=== PATIENT | female | born 1965 | race Caucasian/White ===

== ENCOUNTER 2016-05-16 16:31 | Emergency (ER) | payer OTHER ==
[~2016-05-16 16:31] MED LIST: ACETAMINOPHEN PO; ADVAIR 2501 DISK W/D PO; ALBUTEROL MININEB NEB; ALBUTEROL17 GM INH; ANUSOL-HC25 MG/SUPP RC; ASPIRIN EC81 M1 PO; ASPIRIN PO; ASPIRIN81 M1 PO; ASPIRIN81 M2 PO; ASPIRIN81 MG PO; ATORVASTATIN CA10 MG PO; AZITHROMYCIN250 MG PO; BACTRIM DS TABL1 TA1 PO; BENTYL10 MG PO; BENTYL20 MG DOB; BENTYL20 MG PO; BUSPAR; BUSPAR PO; CARAFATE PO; CARAFATE1 G PO; CARAFATE1 GM PO; CARVEDILOL3.125 MG PO; CIPRO; CIPRO PO; COMBIVENT INH14.7 GM INH; COMBIVENT U/D3 M3 INH; DELTASONE20 MG; DICYCLOMINE HCL20 MG PO; DIFLUCAN PO; ENDOCET 5-3251 EACH PO; FENOFIBRATE160 MG PO; FENOFIBRATE40 MG PO; FENOFIBRATE54 MG PO; FLAGYL; FLAGYL PO; FLAGYL250 M1 PO; FLEXERIL PO; FLEXERIL10 MG PO; FLONASE 0.05% N16 G1; GABAPENTIN600 MG PO; GLIPIZIDE10 MG PO; GLIPIZIDE5 MG/BOTTL PO; GLUCOTROL PO; GLUCOTROL XL PO; GLUCOTROL10 MG PO; HYDROCODON-ACE1 EAC9 PO; IBUPROFEN; IBUPROFEN800 MG PO; IMDUR-ER30 M1 PO; IMDUR-ER30 MG PO; IMDUR-ER60 M1 PO; IMDUR-ER60 MG PO; ISORDIL40 MG PO; JANUMET 50-501 UDTAB PO; JANUMET XR 50-1 EACH PO; KLONOPIN; KLONOPIN PO; KLONOPIN0.5 MG PO; KLONOPIN1 MG PO; LEVAQUIN PO; LEVAQUIN750 MG PO; LEVSIN PO; LEVSIN0.125 M1 DOB; LIPITOR; LIPITOR PO; LIPITOR20 MG PO; LOMOTIL TABLET1 TAB PO; LOPRESSOR PO; LORTAB 10-5001 EACH PO; LORTAB 5/500 TA1 TA1 PO; LORTAB 5/500 TA1 TA2 PO; LORTAB 7.5-5001 TAB PO; LORTAB 7.51 TAB DOB; LOW DOSE ASPIRI81 M1 PO; MACROBID 100 M100 MG PO; MACROBID100 MG PO; MEDROL4 MG/DOSE- PO; METFORMIN HCL500 M1 PO; METOPROLOL TAR25 MG PO; METOPROLOL TART25 MG PO; MIRALAX17 G1 PO; MONTELUKAST SOD10 MG PO; NAPROSYN375 MG PO; NAPROSYN500 MG PO; NEXIUM PO; NICOTINE T1 PATCH .2 TOP; NITROQUICK0.4 MG SL; NORCO 10-325 TA1 TAB PO; NORCO 5/325 TAB1 TAB PO; NUCYNTA50 MG PO; OMEPRAZOLE20 M2 PO; OMEPRAZOLE40 MG PO; PANTOPRAZOLE SO40 MG PO; PENTASA250 MG PO; PHENERGAN DM1 ML PO; PHENERGAN PO; PHENERGAN PR; PHENERGAN25 M1 DOB; PHENERGAN25 M1 PO; PHENERGAN25 MG PO; PLAVIX PO; PRAVACHOL PO; PRAVACHOL20 MG PO; PRAVASTATIN SOD20 MG PO; PRAVASTATIN SOD40 MG PO; PREDNISONE PO; PRILOSEC PO; PRILOSEC20 MG DOB; PRILOSEC20 MG PO; PRILOSEC40 MG PO; PROCORT 1.85%-160 GM RC; PROCTOCREAM-HC30 GM PR; PROTONIX PO; PROZAC PO; PYRIDIUM PO; RANEXA500 MG PO; SERTRALINE HCL50 MG PO; SKELAXIN PO; SYMBICORT INH; TAMIFLU75 M1 PO; TRICOR PO; TYLENOL #3 PO; TYLENOL325 M1 PO; VIBRAMYCIN100 M1 PO; VICODIN 5/1 TAB 5/50 PO; VICODIN PO; ZOFRAN PO; ZOFRANODT PO; ZOLOFT PO; ZOLOFT50 MG PO; [UNRECOGNIZED DRUG - OTHER] PO; [UNRECOGNIZED DRUG - REMARK]
== END 2016-05-16 16:32 | disposition home or self-care (01) ==
LOC: CFTX 16:31
DX: K62.89 Other specified diseases of anus and rectum (principal); K64.9 Unspecified hemorrhoids; E11.9 Type 2 diabetes mellitus without complications; I10 Essential (primary) hypertension; J44.9 Chronic obstructive pulmonary disease, unspecified; F17.210 Nicotine dependence, cigarettes, uncomplicated; Z90.49 Acquired absence of other specified parts of digestive tract; Z88.8 Allergy status to other drugs, medicaments and biological substances; Z88.0 Allergy status to penicillin; Z79.899 Other long term (current) drug therapy
CPT/HCPCS: 99282

== ENCOUNTER 2016-07-10 17:25 | Emergency (ER) | payer OTHER ==
--- NOTE | ~2016-07-10 | EKG ---
PATIENT: NIRU BERRY UNIT #: [id number] Ventricular Rate: 86 BPM Atrial Rate: 86 BPM P-R Interval: 138 ms QRS Duration: 76 ms Q-T Interval: 364 ms QTC Calculation(Bezet): 435 ms P [place]: 48 degrees Calculated R [place]: 42 degrees Calculated T [place]: 28 degrees Diagnosis Line: Normal sinus rhythm Diagnosis Line: Normal ECG Diagnosis Line: When compared with ECG of 17-APR-2016 12:51, Diagnosis Line: No significant change was found Diagnosis Line: Confirmed by CROW CURRIE MD ([id number]) on 07/13/2016 Diagnosis Line: 9:41:25 AM INTERPRETING MD: ROSEY SANCHEZ
--- NOTE | ~2016-07-10 | CR181 ---
[facility] A Service of [facility] & [facility] RADIOLOGY TEXT RESULTS PATIENT: NIRU BERRY LOCATION: [facility] : 69 UNIT #: [id number] AGE: [address]: Hayden Taylor MD SEX: F ORDER DR: [id number] [facility] [address] [place], [place] [address] [id number] E MR#: [id number] Acc #: [id number] NAME: NIRU BERRY : 1965 SEX: F STUDY DATE/TIME: 07/10/2016 18:41 UNIT: [facility] ROOM: STUDY DESCRIPTION: CR Lumbar Spine 2 or 3 Views Attending Physician: Hayden Taylor M.D. Ordering Physician: Hayden Taylor M.D. Primary Care Physician: Man Kay M.D. MEDICAL IMAGING REPORT This report is preliminary unless electronic signature is present EXAM Lumbar spine 3 views 07/10/2016 HISTORY Low back pain beginning yesterday with no known injury. FINDINGS 3 views of the lumbar spine demonstrate no fracture. There is a 5 mm anterolisthesis of L4 on L5. The remainder of the posterior vertebral body line is intact. There is degenerative change with mild disc space narrowing at L4-5 and L5-S1. Degenerative changes seen involving all of the articular facets. There is mild atherosclerotic calcification of the abdominal aorta. IMPRESSION Degenerative change in the lumbar spine. No acute abnormality. Dictated by... Brock Javier M.D. THIS IS AN ELECTRONICALLY VERIFIED REPORT Brock Javier M.D. at 07/11/2016 10:46 AM NHEA/elsa TD: 07/11/2016 08:22 JOB #: [id number] MEDICAL IMAGING REPORT Page 1 of 1 COPY
--- NOTE | ~2016-07-10 | CR72 ---
[facility] A Service of [facility] & [facility] RADIOLOGY TEXT RESULTS PATIENT: NIRU BERRY LOCATION: [facility] : 69 UNIT #: [id number] AGE: [address]: Hayden Taylor MD SEX: F ORDER DR: [id number] [facility] [address] [place], [place] [address] [id number] E MR#: [id number] Acc #: [id number] NAME: NIRU BERRY : 1965 SEX: F STUDY DATE/TIME: 07/10/2016 18:40 UNIT: [facility] ROOM: STUDY DESCRIPTION: CR Chest Single View Portable Attending Physician: Hayden Taylor M.D. Ordering Physician: Hayden Taylor M.D. Primary Care Physician: Man Kay M.D. MEDICAL IMAGING REPORT This report is preliminary unless electronic signature is present EXAM Portable chest 07/10/2016 HISTORY Cough beginning yesterday, diabetes. Smoking history for over 30 years. FINDINGS A single AP portable view of the chest shows both lungs to be clear. The heart is normal in size. The mediastinal contour is normal. No significant bone abnormalities are seen. IMPRESSION Normal portable chest. Dictated by... Brock Javier M.D. THIS IS AN ELECTRONICALLY VERIFIED REPORT Brock Javier M.D. at 07/11/2016 10:46 AM NEHA/elsa TD: 07/11/2016 08:11 JOB #: [id number] MEDICAL IMAGING REPORT Page 1 of 1 COPY
--- NOTE | ~2016-07-10 | CR58 ---
[facility] A Service of [facility] & [facility] RADIOLOGY TEXT RESULTS PATIENT: NIRU BERRY LOCATION: [facility] : 69 UNIT #: [id number] AGE: [address]: Hayden Taylor MD SEX: F ORDER DR: [id number] [facility] [address] [place], [place] [address] [id number] E MR#: [id number] Acc #: [id number] NAME: NIRU BERRY : 1965 SEX: F STUDY DATE/TIME: 07/10/2016 18:40 UNIT: [facility] ROOM: STUDY DESCRIPTION: CR Cervical Spine 2 or 3 Views Attending Physician: Hayden Taylor M.D. Ordering Physician: Hayden Taylor M.D. Primary Care Physician: Man Kay M.D. MEDICAL IMAGING REPORT This report is preliminary unless electronic signature is present EXAM Cervical spine 5 views 07/10/2016 HISTORY Neck pain, cervical radiculopathy beginning yesterday. No known trauma. FINDINGS 5 views of the cervical spine show satisfactory preservation of the cervical lordosis. The cervical soft tissues are normal. All anterior and posterior elements in the cervical area are anatomically normal without identifiable fracture, dislocation, malignant lytic or sclerotic change, or arthritis. There is no congenital defect apparent. IMPRESSION Normal cervical spine. Dictated by... Brock Javier M.D. THIS IS AN ELECTRONICALLY VERIFIED REPORT Brock Javier M.D. at 07/11/2016 10:46 AM NEHA/lenny TD: 07/11/2016 08:13 JOB #: [id number] MEDICAL IMAGING REPORT Page 1 of 1 COPY
[2016-07-10 16:20] LABS: BASOPHIL# 0.1 X10e3 (0-0.3); BASOPHIL% 0.7 % (0-2.5); EOSINOPHIL# 0.1 X10e3 (0-0.7); HEMATOCRIT 38.6 % (35.0-45.0); HEMOGLOBIN 12.1 gm/dL (12.0-16.0); LYMPHOCYTE# 2.3 X10e3 (1.0-3.5); LYMPHOCYTE% 20.1 % (17.0-45.0); MEAN CELL VOLUME 79.5 FL (83-96); MEAN CORPUSCULAR HGB CONC 31.4 g/dL (30-36); MEAN PLATELET VOLUME 8.4 FL (6.5-11.5); MONOCYTE# 0.6 X10e3 (0-1.0); MONOCYTE% 4.9 % (3.0-12.0); NEUTROPHIL# 8.3 X10e3 (1.5-7.1); NEUTROPHIL% 73.3 % (40-75); PLATELET COUNT 313 X10e3 (140-420); RED BLOOD COUNT 4.85 X10e (3.90-5.30); RED CELL DISTRIBUTION WIDTH 15.1 % (11.0-15.5); WHITE BLOOD COUNT 11.3 X10e3 (4.0-10.5)
[2016-07-10 16:22] LABS: DIFF IND NO
[2016-07-10 16:42] LABS: ALBUMIN SERUM 4.5 g/dL (3.5-5.0); BILIRUBIN, DIRECT 0.1 mg/dL (0.0-0.2); BILIRUBIN,TOTAL 0.1 mg/dL (0.2-2.0); BUN/CREATININE RATIO 12.72; CALCIUM SERUM 9.7 mg/dL (8.4-10.2); CREATININE SERUM 1.1 mg/dL (0.6-1.4); GLOM FILT RATE Estimated 58.9 mL/min (>60); PROTEIN TOTAL SERUM 7.7 g/dL (6.0-8.3)
[2016-07-10 17:12] LABS: POC - CKMB <1.0 ng/mL (0.0-7.9); POC - TROPONIN <0.05 ng/mL (<=0.05)
[2016-07-10 17:18] LABS: URINE SOURCE CLEAN CATCH
[2016-07-10 17:28] LABS: URINE APPEARANCE CLEAR; URINE BILIRUBIN NEG (NEG); URINE BLOOD NEG (NEG); URINE COLOR YELLOW; URINE GLUCOSE 100 MG/DL (NEG); URINE KETONE NEG (NEG); URINE LEUKOCYTE ESTERASE 1+ (NEG); URINE NITRATE NEG (NEG); URINE PROTEIN NEG (NEG); URINE SPECIFIC GRAVITY 1.015 (1.003-1.035)
[2016-07-10 17:32] LABS: CULTURE INDICATED? YES; URBCS1 AUWI 0-2 /[HPF] (0-2); URINE BACTERIA AUWI NEG (NEGATIVE); URINE SQUAMOUS EPITHELIAL CELL OCC /[HPF]
[2016-07-10 18:13] LABS: POC - CKMB <1.0 ng/mL (0.0-7.9); POC - TROPONIN <0.05 ng/mL (<=0.05)
[2016-07-10 18:44] LABS: AMPHETAMINE NEG (NEG); BARBITURATES NEG (NEG); BENZODIAZEPINES POS (NEG); COCAINE NEG (NEG); MARIJUANA NEG (NEG); OPIATES POS (NEG); TRICYCLIC ANTIDEPRESSANTS NEG (NEG); U METHADONE NEG (NEG)
== END 2016-07-10 19:37 | disposition home or self-care (01) ==
LOC: CED 17:25
PROVIDERS: Emergency Medicine
DX: M54.12 Radiculopathy, cervical region (principal); M54.16 Radiculopathy, lumbar region; J44.9 Chronic obstructive pulmonary disease, unspecified; Z88.8 Allergy status to other drugs, medicaments and biological substances
CPT/HCPCS: 36415; 71010; 72040; 72100; 80048; 80076; 80307; 81003; 82553; 83690; 84484; 84703; 85025; 87086; 93005; 99284

== ENCOUNTER 2016-08-04 13:32 | Emergency (ER) | payer OTHER ==
--- NOTE | ~2016-08-04 | CR126 ---
[facility] A Service of [facility] & [facility] RADIOLOGY TEXT RESULTS PATIENT: NIRU BERRY LOCATION: [facility] : 69 UNIT #: [id number] AGE: [address]: Karyn Chen APRN SEX: F ORDER DR: [id number] [facility] [address] [place], [place] [address] [id number] E MR#: [id number] Acc #: [id number] NAME: NIRU BERRY : 1965 SEX: F STUDY DATE/TIME: 08/04/2016 15:14 UNIT: [facility] ROOM: STUDY DESCRIPTION: CR Foot Complete Min 3 View Lt Attending Physician: Karyn Chen A.P.R.N. Referring Physician: Hector Everett M.D. Ordering Physician: Ed Jero Leo M.D. Primary Care Physician: Man Kay M.D. MEDICAL IMAGING REPORT This report is preliminary unless electronic signature is present EXAM Left foot, 3 views, 08/04/16. COMPARISON 07/03/13 HISTORY SUPPLIED Pain and swelling. Twisted foot yesterday. FINDINGS Three views of the left foot are submitted. Bony elements are intact. No fractures or foreign bodies are seen. CONCLUSION 1. Negative. Dictated by... Aneudy Mckinney M.D. THIS IS AN ELECTRONICALLY VERIFIED REPORT Aneudy Mckinney M.D. at 08/05/2016 6:06 PM RADHA/nadya TD: 08/04/2016 19:04 JOB #: [id number] MEDICAL IMAGING REPORT Page 1 of 1 COPY
--- NOTE | ~2016-08-04 | CR20 ---
[facility] A Service of [facility] & [facility] & [facility] RADIOLOGY TEXT RESULTS PATIENT: NIRU BERRY LOCATION: [facility] : 69 UNIT #: [id number] AGE: [address]: Karyn Chen APRN SEX: F ORDER DR: [id number] [facility] [address] [place], [place] [address] [id number] E MR#: [id number] Acc #: [id number] NAME: NIRU BERRY : 1965 SEX: F STUDY DATE/TIME: 08/04/2016 15:15 UNIT: [facility] ROOM: STUDY DESCRIPTION: CR Ankle Min 3 Views Lt Attending Physician: Karyn Chen A.P.R.N. Referring Physician: Hector Everett M.D. Ordering Physician: Pepito Leo M.D. Primary Care Physician: Man Kay M.D. MEDICAL IMAGING REPORT This report is preliminary unless electronic signature is present EXAM Left ankle, 3 views. HISTORY Twisted ankle yesterday with persistent pain. FINDINGS Three views are submitted. Bony elements are intact. No fractures are identified. There is a small calcaneal spur. CONCLUSION Negative. Dictated by... Aneudy Mckinney M.D. THIS IS AN ELECTRONICALLY VERIFIED REPORT Aneudy Mckinney M.D. at 08/05/2016 6:06 PM RADHA/nadya TD: 08/04/2016 19:05 JOB #: [id number] MEDICAL IMAGING REPORT Page 1 of 1 COPY
== END 2016-08-04 15:49 | disposition home or self-care (01) ==
LOC: CED 13:32 → CFTX 13:32
DX: S93.421A Sprain of deltoid ligament of right ankle, initial encounter (principal); E11.9 Type 2 diabetes mellitus without complications; F17.200 Nicotine dependence, unspecified, uncomplicated; Z88.0 Allergy status to penicillin; Z88.8 Allergy status to other drugs, medicaments and biological substances; Z88.5 Allergy status to narcotic agent; Z79.899 Other long term (current) drug therapy; W10.8XXA Fall (on) (from) other stairs and steps, initial encounter; Y92.009 Unspecified place in unspecified non-institutional (private) residence as the place of occurrence of the external cause
CPT/HCPCS: 29540; 73610; 73630; 99283

== ENCOUNTER 2016-09-08 12:03 | Observation (INO) | payer OTHER ==
--- NOTE | ~2016-09-08 | EKG ---
PATIENT: NIRU BERRY UNIT #: [id number] Ventricular Rate: 83 BPM Atrial Rate: 83 BPM P-R Interval: 134 ms QRS Duration: 80 ms Q-T Interval: 368 ms QTC Calculation(Bezet): 432 ms P [place]: 39 degrees Calculated R [place]: 35 degrees Calculated T [place]: 18 degrees Diagnosis Line: Normal sinus rhythm with sinus arrhythmia Diagnosis Line: Normal ECG Diagnosis Line: When compared with ECG of 08-SEP-2016 12:09, Diagnosis Line: (unconfirmed) Diagnosis Line: Non-specific change in ST segment in Inferior Diagnosis Line: leads Diagnosis Line: T wave inversion no longer evident in Inferior Diagnosis Line: leads Diagnosis Line: Confirmed by IFEOMA BELTRAN MD ([id number]) on Diagnosis Line: 09/09/2016 8:00:25 AM INTERPRETING MD: DEVIN SANCHEZ
--- NOTE | ~2016-09-08 | TH ---
Unit #: [id number] #: [id number] Patient: NIRU BERRY [id number] [address] [address] [id number] I MR#: [id number] NAME: NIRU BERRY : 1965 SEX: F STUDY DATE/TIME: UNIT: [facility] ROOM: 576 STUDY DESCRIPTION: Nuclear Study Attending Physician: Rolando Montejo M.D. Primary Care Physician: Man Kay M.D. CARDIOLOGY REPORT EXAM Lexiscan Cardiolite Stress Test - Nuclear Portion PROCEDURE Using technetium 99m labeled Cardiolite, rest and stress SPECT images were obtained. Multiple SPECT images were obtained in various views including horizontal and vertical long axis and short axis views of the left ventricle. Images were obtained by gated SPECT method. The patient was administered 10.35 mCi of Cardiolite at rest. The patient was administered 33.5 mCi of Cardiolite after Lexiscan infusion was completed. On the stress images, there is normal perfusion noted. The rest images show normal perfusion. Comparing rest and stress images, there is no stress-induced ischemia noted. The left ventricular ejection fraction is calculated to be 71%. There is no focal wall motion abnormality seen. CONCLUSION 1. No stress-induced ischemia. 2. The left ventricular ejection fraction is calculated to be 71%. 3. There is no focal wall motion abnormality seen. 4. Normal Lexiscan Cardiolite stress test. 5. Technically limited study due to patient's body habitus. Clinical correlation is requested. Dictated by... Lindsay Hooper TD: 09/10/2016 08:23 JOB #: [id number] Unit #: [id number] #: [id number] Patient: NIRU BERRY CARDIOLOGY REPORT Page 1 of 1 X Lynda Lundberg MD <ELECTRONICALLY SIGNED> 09/24/16 1429 CARDIOLOGY REPORT
--- NOTE | ~2016-09-08 | HP ---
Unit #: [id number] #: [id number] Patient: NIRU BERRY [id number] [address] [address] [id number] I MR#: [id number] NAME: NIRU BERRY ROOM: 576 Age: 51 Sex: F Admission Date: 09/08/2016 : 1965 Attending Physician: Rolando Montejo M.D. Primary Care Physician: Man Kay M.D. HISTORY AND PHYSICAL ADDENDUM Patient completed Lexiscan Cardiolite stress test. It was a technically difficult study but negative for ischemia with EF 71%. She will be discharged home today with plans to follow up with her PCP in 1-2 weeks and plans to follow up with Dr. Montejo on , January 12, at 2:15 p.m. She was instructed to return to the ER if she had continued chest pain. She was counselled on smoking cessation. See discharge med/rec sheet for home medications. DISPOSITION Home. Dictated by More Ma APRN for Lindsay Platt/latrell TD: 09/14/2016 15:43 JOB #: [id number] HISTORY AND PHYSICAL Page 1 of 1 X X HISTORY AND PHYSICAL
--- NOTE | ~2016-09-08 | CR72 ---
[facility] A Service of [facility] & [facility] RADIOLOGY TEXT RESULTS PATIENT: NIRU BERRY LOCATION: [facility] : 69 UNIT #: [id number] AGE: [address]: Shelley Loeps MD SEX: F ORDER DR: [id number] [facility] [address] [place], [place] [address] [id number] E MR#: [id number] Acc #: [id number] NAME: NIRU BERRY : 1965 SEX: F STUDY DATE/TIME: 09/08/2016 13:30 UNIT: [facility] ROOM: STUDY DESCRIPTION: CR Chest Single View Portable Attending Physician: Shelley Lopes M.D. Ordering Physician: Shelley Lopes M.D. Primary Care Physician: Man Kay M.D. MEDICAL IMAGING REPORT This report is preliminary unless electronic signature is present EXAM Portable chest. INDICATIONS Chest pain beginning today, 09/08. COMPARISON 07/10/2016 FINDINGS A portable view of the chest is obtained. The heart size and vascularity are normal, and the lungs are clear, and the bones are unremarkable. IMPRESSION No active disease. Dictated by... Juan Carlos Dahl M.D. THIS IS AN ELECTRONICALLY VERIFIED REPORT Juan Carlos Dahl M.D. at 09/08/2016 4:30 PM Lance TD: 09/08/2016 16:09 JOB #: [id number] MEDICAL IMAGING REPORT Page 1 of 1 COPY
--- NOTE | ~2016-09-08 | ST ---
Unit #: [id number] #: [id number] Patient: NIRU BERRY [id number] [address] [address] [id number] I MR#: [id number] NAME: NIRU BERRY : 1965 SEX: F STUDY DATE/TIME: 09/09/2016 UNIT: [facility] ROOM: 576 STUDY DESCRIPTION: EKG portion of lexiscan Attending Physician: Rolando Montejo M.D. Primary Care Physician: Man Kay M.D. CARDIOLOGY REPORT EXAM EKG portion of Lexiscan Cardiolite stress test. REASON FOR EXAM Chest pain. DESCRIPTION Baseline EKG is normal sinus rhythm with a ventricular rate of 69 and nonspecific T wave abnormality. A treadmill exercise stress test was attempted but patient could not complete past one minute due to extreme back pain and leg pain. Instead a Lexiscan Cardiolite stress test was completed. A total of 0.4 mg of Lexiscan was injected per protocol, followed by cardiology. Patient's symptoms were lightheadedness. There were no ST changes or arrhythmias. The test was stopped due to protocol completion. This is a negative test. There were no ischemic EKG changes. Please correlate with Cardiolite imaging. Dictated by... More Ma APRN for Lindsay Hooper/lico TD: 09/09/2016 11:46 JOB #: [id number] CARDIOLOGY REPORT Page 1 of 1 X CARDIOLOGY REPORT
--- NOTE | ~2016-09-08 | HP ---
Unit #: [id number] #: [id number] Patient: NIRU BERRY [id number] [address] [address] [id number] I MR#: [id number] NAME: NIRU BERRY ROOM: 576 Age: 51 Sex: F Admission Date: 09/08/2016 : 1965 Attending Physician: Rolando Montejo M.D. Primary Care Physician: Man Kay M.D. HISTORY AND PHYSICAL CHIEF COMPLAINT Chest pain HISTORY OF PRESENT ILLNESS This is a 51-year-old female who is a patient of Dr. Aneudy Adkins. She has a prior history of coronary artery disease status post stent to her LAD in 2009. Her last cardiac catheterization was August 2011, which showed her left main 10-20% distal stenosis, LAD stent with a patent stent and luminal irregularities, a very small diagonal with 70% ostial, left circumflex proximal 20%, RCA 20% and left ventricular ejection fraction 55%. She also has a history of hypertension, diabetes mellitus, hyperlipidemia, COPD, obstructive sleep apnea, anxiety and depression, and long time tobacco abuse. She had a normal stress test in July 2013 with an ejection fraction of 62%. Her last echocardiogram in September 2012 showed an left ventricular ejection fraction of 55%. She presented to the emergency room with reports of chest pain and pressure, states the pain was about a 7/10, improved with nitroglycerin. She denies nausea, vomiting or dizziness with the pain. EKG in the emergency room showed nonspecific ST changes. Troponins were negative x2. PAST MEDICAL HISTORY 1. Coronary artery disease status post stent to LAD in 2009 2. Cardiac catheterization 08/2011, showed ejection fraction of 55%, left main 10-20% distal, LAD patent stent with luminal irregularities proximal, small diagonal 70% ostial, left circumflex proximal 20%, RCA 20%. 3. Hypertension 4. Diabetes mellitus 5. Hyperlipidemia 6. Chronic obstructive pulmonary disease 7. Obstructive sleep apnea with CPAP 8. Tobacco abuse 9. Anxiety 10. Depression 11. Lexiscan Cardiolite stress test normal in July 2013 PAST SURGICAL HISTORY 1. Cholecystectomy 2. section 3. Hysterectomy 4. Kidney stone surgery 5. Cardiac catheterization Unit #: [id number] #: [id number] Patient: NIRU BERRY SOCIAL HISTORY The patient lives with her spouse. She is very sedentary and is on disability. She smokes one-half to one pack cigarettes per day. She denies illicit drug or alcohol use. FAMILY HISTORY Her father of coronary artery disease at the age of 71. Her mother had coronary artery disease. ALLERGIES BENTYL, PSEUDOEFEDRINE, KETORLAC, TRAMADOL, PENICILLINS, GABAPENTIN, (1) HOME MEDICATIONS 1. Lortab 10/325 one tablet p.o. twice a day as needed for moderate pain 2. Glipizide 2 mg p.o. twice a day 3. Klonopin 1 mg p.o. three times a day 4. Aspirin 81 mg p.o. daily 5. Lipitor 20 mg p.o. daily 6. Janumet 50/500 one tablet p.o. twice a day 7. Fenofibrate 180 mg p.o. daily 8. Prilosec 20 mg p.o. daily 9. Zoloft 100 mg p.o. daily REVIEW OF SYSTEMS Positive for intermittent chest pain, weakness, dyspnea on exertion. Otherwise, negative except for what was stated in the HPI. PHYSICAL EXAMINATION VITAL SIGNS: Temperature 98.3, heart rate 83, respiratory rate 20, blood pressure 132/72, height 65 inches, weight 81.5 kg. GENERAL: This is a 51-year-old female, up in a chair in no acute distress. HEENT: Atraumatic and normocephalic. Pupils are equal and round. Mucous membranes are moist. NECK: Supple. Trachea is midline. Negative for JVD. LUNGS: Clear to auscultation. Nonlabored respirations. HEART: S1, S2. Regular rate and rhythm. No significant murmurs, rubs, or gallops. ABDOMEN: Soft, nontender, nondistended. EXTREMITIES: Pulses are palpable. No pedal edema. No cyanosis. NEUROLOGIC: Alert and oriented x3. Moves all extremities equally and follows commands without difficulty. DIAGNOSTIC STUDIES LABORATORY: Sodium 135, potassium 4.1, chloride 103, BUN 10, creatinine 0.8, glucose 161. Hemoglobin 11.6, hematocrit 37, white blood cell count 9, platelets 267,000. AST 80, ALT 39, alkaline phosphatase 106. Hemoglobin A1c 7 and TSH is 2.14. BNP 12. Point of care troponin less than 0.05 and repeat troponin 0.03 x2. Lipid profile: Cholesterol 189, triglycerides 324, LDL 104, HDL 20. IMAGING: Chest x-ray shows no acute disease. CARDIOVASCULAR: EKG shows normal sinus rhythm with a ventricular rate of [address] abnormalities. ASSESSMENT Unit #: [id number] #: [id number] Patient: NIRU BERRY 1. Chest pain, probable ischemic heart disease 2. Nicotine abuse 3. Chronic obstructive pulmonary disease 4. Status post percutaneous coronary intervention and stent to left anterior descending in 2009 5. Hypertension 6. Hyperlipidemia 7. Chronic obstructive pulmonary disease/obstructive sleep apnea 8. Diabetes mellitus 9. Anxiety and depression PLAN 1. Exercise Cardiolite in a.m. 2. Check fasting lipid profile, TSH and hemoglobin A1c in a.m. 3. Nitroglycerin paste 0.5 inch twice a day 4. Continue to trend cardiac enzymes 5. Admit to telemetry, place on observation, diagnosis chest pain 6. Healthy heart/CC diet 7. AccuChek in the morning and at bedtime with low-dose sliding scale insulin 8. Nothing by mouth after midnight 9. Continue home medications per medication reconciliation sheet Dictated by More Ma APRN for Rolando Montejo M.D. SWETHA/maribell TD: 09/09/2016 17:14 JOB #: [id number] HISTORY AND PHYSICAL Page 1 of 1 X X HISTORY AND PHYSICAL
--- NOTE | ~2016-09-08 | EKG ---
PATIENT: NIRU BERRY UNIT #: [id number] Ventricular Rate: 84 BPM Atrial Rate: 84 BPM P-R Interval: 128 ms QRS Duration: 82 ms Q-T Interval: 352 ms QTC Calculation(Bezet): 415 ms P [place]: 58 degrees Calculated R [place]: 59 degrees Calculated T [place]: -38 degrees Diagnosis Line: Normal sinus rhythm Diagnosis Line: Nonspecific ST abnormality Diagnosis Line: Abnormal QRS-T angle, consider primary T wave Diagnosis Line: abnormality Diagnosis Line: Abnormal ECG Diagnosis Line: When compared with ECG of 10-JUL-2016 16:17, Diagnosis Line: ST no longer elevated in Inferior leads Diagnosis Line: T wave inversion now evident in Inferior leads Diagnosis Line: Confirmed by IFEOMA BELTRAN MD ([id number]) on Diagnosis Line: 09/09/2016 8:00:04 AM INTERPRETING MD: DEVIN SANCHEZ
[2016-09-08] MEDS ORDERED: GLIPIZIDE10 MG PO (13:07)
[2016-09-08] MEDS ORDERED: ASPIRIN81 M2 PO (13:07)
[2016-09-08] MEDS ORDERED: KLONOPIN1 MG PO (13:07)
[2016-09-08] MEDS ORDERED: LORTAB 10-3251 EACH PO (13:07)
[2016-09-08] MEDS ORDERED: LIPITOR20 MG PO (13:07)
[2016-09-08] MEDS ORDERED: JANUMET 50-5001 EACH PO (13:08)
[2016-09-08] MEDS ORDERED: ZOLOFT PO (13:08)
[2016-09-08] MEDS ORDERED: FENOGLIDE40 MG PO (13:08)
[2016-09-08] MEDS ORDERED: PRILOSEC PO (13:08)
[2016-09-08 13:35] LABS: POC - CKMB <1.0 ng/mL (0.0-7.9); POC - TROPONIN <0.05 ng/mL (<=0.05)
[2016-09-08 14:04] LABS: BASOPHIL# 0.1 X10e3 (0-0.3); BASOPHIL% 1.2 % (0-2.5); EOSINOPHIL# 0.1 X10e3 (0-0.7); HEMOGLOBIN 11.6 gm/dL (12.0-16.0); LYMPHOCYTE# 2.3 X10e3 (1.0-3.5); LYMPHOCYTE% 25.4 % (17.0-45.0); MEAN CORPUSCULAR HEMOGLOBIN 24.1 PG (28-34); MEAN CORPUSCULAR HGB CONC 31.3 g/dL (30-36); MEAN PLATELET VOLUME 9.6 FL (6.5-11.5); MONOCYTE# 0.4 X10e3 (0-1.0); MONOCYTE% 4.6 % (3.0-12.0); NEUTROPHIL# 6.1 X10e3 (1.5-7.1); NEUTROPHIL% 67.8 % (40-75); PLATELET COUNT 267 X10e3 (140-420); RED CELL DISTRIBUTION WIDTH 15.7 % (11.0-15.5)
[2016-09-08 14:06] LABS: DIFF IND NO
[2016-09-08 14:25] LABS: PARTIAL THROMBOPLASTIN TIME 23.6 SECONDS (23.5-31.3); PROTHROMBIN TIME (PATIENT) 10.8 SECONDS (10.0-11.7)
[2016-09-08 14:26] LABS: ALBUMIN SERUM 4.3 g/dL (3.5-5.0); BILIRUBIN, DIRECT 0.1 mg/dL (0.0-0.2); BILIRUBIN,INDIRECT 0.1 mg/dL (0.0-0.9); BILIRUBIN,TOTAL 0.2 mg/dL (0.2-2.0); BUN/CREATININE RATIO 12.5; CALCIUM SERUM 9.4 mg/dL (8.4-10.2); CREATININE SERUM 0.8 mg/dL (0.6-1.4); GLOM FILT RATE Estimated 86.6 mL/min (>60); POTASSIUM 4.1 mmol/L (3.5-5.1); PROTEIN TOTAL SERUM 7.7 g/dL (6.0-8.3)
[2016-09-08 16:06] LABS: POC - CKMB <1.0 ng/mL (0.0-7.9); POC - TROPONIN <0.05 ng/mL (<=0.05)
[2016-09-08 22:38] LABS: CK TOTAL 31 IU/L (26-140)
[2016-09-09 04:09] LABS: CK TOTAL 31 IU/L (26-140)
[2016-09-09 04:15] LABS: CHOLESTEROL 189 mg/dL (0-200); HDL CHOLESTEROL 20 mg/dL (35-95); LDL CHOLESTEROL 104 mg/dL (-130); LDL/HDL RATIO 5 RATIO (0-4); TRIGLYCERIDES 324 mg/dL (10-160)
== END 2016-09-09 16:45 | disposition home or self-care (01) ==
LOC: CED 12:03 → CEDOF 17:10 → CED 17:56 → CEDOF 17:56 → C5C 17:56 → CEDOF 19:45 → C5C 19:45
PROVIDERS: Emergency Medicine; Internal Medicine Cardiovascular Disease
DX: R07.89 Other chest pain (principal); J44.9 Chronic obstructive pulmonary disease, unspecified; F17.210 Nicotine dependence, cigarettes, uncomplicated; Z95.5 Presence of coronary angioplasty implant and graft; I10 Essential (primary) hypertension; E78.5 Hyperlipidemia, unspecified; G47.33 Obstructive sleep apnea (adult) (pediatric); E11.9 Type 2 diabetes mellitus without complications; Z79.84 Long term (current) use of oral hypoglycemic drugs; F41.8 Other specified anxiety disorders
CPT/HCPCS: 36415; 71010; 78452; 80048; 80061; 80076; 82550; 82553; 82947; 83036; 83880; 84443; 84484; 85025; 85610; 85730; 93005; 93017; 99285; A9500; G0378; J1815; J2785

== ENCOUNTER 2016-09-29 16:09 | Emergency (ER) | payer OTHER ==
[~2016-09-29] VITALS: Ht 165.1 cm; Wt 85.7 kg
[~2016-09-29 16:09] MED LIST changes: +FENOGLIDE40 MG PO; +JANUMET 50-5001 EACH PO; +LORTAB 10-3251 EACH PO
== END 2016-09-29 16:50 | disposition home or self-care (01) ==
LOC: CED 16:09
DX: R07.81 Pleurodynia (principal); I25.10 Atherosclerotic heart disease of native coronary artery without angina pectoris; E78.5 Hyperlipidemia, unspecified; J44.9 Chronic obstructive pulmonary disease, unspecified; E11.9 Type 2 diabetes mellitus without complications; I10 Essential (primary) hypertension; G47.33 Obstructive sleep apnea (adult) (pediatric); F41.9 Anxiety disorder, unspecified; F32.9 Major depressive disorder, single episode, unspecified; F17.200 Nicotine dependence, unspecified, uncomplicated; Z90.49 Acquired absence of other specified parts of digestive tract; Z90.710 Acquired absence of both cervix and uterus; Z79.82 Long term (current) use of aspirin; Z79.899 Other long term (current) drug therapy; Z88.0 Allergy status to penicillin; Z88.8 Allergy status to other drugs, medicaments and biological substances
CPT/HCPCS: 99283

== ENCOUNTER 2016-10-19 14:29 | Emergency (ER) | payer OTHER ==
[~2016-10-19] VITALS: Ht 165.1 cm; Wt 86.2 kg
== END 2016-10-19 18:28 | disposition left against medical advice (07) ==
LOC: CED 14:29
DX: Z53.21 Procedure and treatment not carried out due to patient leaving prior to being seen by health care provider (principal)

== ENCOUNTER 2016-11-23 10:43 | Emergency (ER) | payer OTHER ==
[~2016-11-23] VITALS: Ht 165.1 cm; Wt 87.1 kg
--- NOTE | ~2016-11-23 | EKG ---
PATIENT: NIRU BERRY UNIT #: [id number] Ventricular Rate: 89 BPM Atrial Rate: 89 BPM P-R Interval: 142 ms QRS Duration: 78 ms Q-T Interval: 338 ms QTC Calculation(Bezet): 411 ms P [place]: 61 degrees Calculated R [place]: 42 degrees Calculated T [place]: 28 degrees Diagnosis Line: Normal sinus rhythm Diagnosis Line: Normal ECG Diagnosis Line: When compared with ECG of 08-SEP-2016 13:11, Diagnosis Line: No significant change was found Diagnosis Line: Confirmed by IFEOMA BELTRAN MD ([id number]) on Diagnosis Line: 11/24/2016 9:44:15 AM INTERPRETING MD: DEVIN SANCHEZ
--- NOTE | ~2016-11-23 | CR72 ---
[facility] A Service of [facility] & [facility] RADIOLOGY TEXT RESULTS PATIENT: NIRU BERRY LOCATION: [facility] : [birth year] UNIT #: [id number] AGE: [address]: Mando Donnelly MD SEX: F ORDER DR: [id number] [facility] [address] [place], [place] [address] [id number] E MR#: [id number] Acc #: [id number] NAME: NIRU BERRY : 1965 SEX: F STUDY DATE/TIME: 11/23/2016 11:28 UNIT: [facility] ROOM: STUDY DESCRIPTION: CR Chest Single View Portable Attending Physician: Mando Donnelly M.D. Ordering Physician: Mando Donnelly M.D. Primary Care Physician: Man Kay M.D. MEDICAL IMAGING REPORT This report is preliminary unless electronic signature is present EXAM Portable chest 11/23/2016 HISTORY 51-year-old female with cough, shortness of air for 2 days. COMPARISON Chest 09/08/2016 FINDINGS Frontal chest demonstrates clear lungs. No pleural effusion or pneumothorax. Heart size and mediastinum are normal. Pulmonary vasculature normal. IMPRESSION No acute cardiopulmonary findings. Dictated by... Aleks Portillo M.D. THIS IS AN ELECTRONICALLY VERIFIED REPORT Aleks Portillo M.D. at 11/23/2016 4:30 PM MAURO/dawn TD: 11/23/2016 12:25 JOB #: [id number] MEDICAL IMAGING REPORT Page 1 of 1 COPY
--- NOTE | ~2016-11-23 | CT4 ---
[facility] A Service of [facility] RADIOLOGY TEXT RESULTS PATIENT: NIRU BERRY LOCATION: [facility] : [birth year] UNIT #: [id number] AGE: [address]: Mando Donnelly MD SEX: F ORDER DR: [id number] [facility] [address] [place], [place] [address] [id number] MR#: [id number] #: [id number] NAME: NIRU BERRY : 1965 SEX: F STUDY DATE/TIME: 11/23/2016 12:16 UNIT: [facility] ROOM: STUDY DESCRIPTION: CT Abd and Pelv Wo Cont Attending Physician: Mando Donnelly M.D. Ordering Physician: [id number] Cat Donnelly Primary Care Physician: Man Kay M.D. MEDICAL IMAGING REPORT This report is preliminary unless electronic signature is present EXAM CT abdomen and pelvis without contrast DATE 11/23/2016 HISTORY 51-year-old female, with cough and abdominal pain for 2 days. Additional history of diverticulosis, COPD, high cholesterol, irritable bowel syndrome, gastritis, colitis, kidney stones, diabetes. COMPARISON CT abdomen and pelvis without contrast 06/20/2016. PROCEDURE 5 mL noncontrast axial images through the abdomen and pelvis. Enteric contrast was not administered. Sagittal and coronal reformatted images were obtained. This CT exam was performed with one or more of the following radiation dose reduction techniques: automatic control, adjustment of mA and/or kV according to patient size, and iterative reconstruction. FINDINGS ABDOMEN FINDINGS: The liver is enlarged up to 21.3 cm craniocaudally, unchanged. No focal liver lesions are identified. Cholecystectomy. Spleen is enlarged up to 15.8 cm craniocaudally, unchanged, without focal splenic lesion. Lung bases are clear. Heart size is normal. The pancreas, adrenals and right kidney have a normal noncontrast appearance. A nonobstructing left renal stone measures 3 mm. 1.6 cm cyst projects laterally and exophytically from the left mid to lower renal [facility] A Service of [facility] RADIOLOGY TEXT RESULTS PATIENT: NIRU BERRY LOCATION: [facility] #: [id number] : [birth year] UNIT #: [id number] AGE: [address]: Mando Donnelly MD SEX: F ORDER DR: jeff. Sand-like stone or calcification in the right kidney measures 4 mm. No ureteral calculus or hydronephrosis or perinephric inflammation is seen. The appendix is normal. Limited evaluation of bowel due to lack of enteric contrast but no focal bowel inflammation is seen. PELVIS FINDINGS: Mild uncomplicated sigmoid diverticulosis. Hysterectomy. Suspected rectocele. Urinary bladder is normal. Small pelvic phleboliths. No acute osseous abnormalities. No pelvic adenopathy or free fluid. IMPRESSION 1. No acute findings in the abdomen or pelvis. 2. Uncomplicated sigmoid diverticulosis. 3. Normal appendix. 4. Small nonobstructing bilateral renal stones. Left renal cyst. 5. Stable hepatosplenomegaly. 6. Cholecystectomy and hysterectomy. 7. Small rectocele. Dictated by... Hortensia Dalal M.D. THIS IS AN ELECTRONICALLY VERIFIED REPORT Hortensia Dalal M.D. at 11/24/2016 9:40 AM JACINTA/andrez TD: 11/23/2016 13:38 JOB #: [id number] MEDICAL IMAGING REPORT Page 1 of 1 COPY
[2016-11-23 12:15] LABS: BASOPHIL# 0.1 X10e3 (0-0.3); BASOPHIL% 0.9 % (0-2.5); EOSINOPHIL# 0.1 X10e3 (0-0.7); EOSINOPHIL% 1.6 % (0.0-7.0); HEMATOCRIT 35.9 % (35.0-45.0); HEMOGLOBIN 11.3 gm/dL (12.0-16.0); LYMPHOCYTE# 1.3 X10e3 (1.0-3.5); LYMPHOCYTE% 22.1 % (17.0-45.0); MEAN CELL VOLUME 76.9 FL (83-96); MEAN CORPUSCULAR HEMOGLOBIN 24.3 PG (28-34); MEAN CORPUSCULAR HGB CONC 31.6 g/dL (30-36); MEAN PLATELET VOLUME 8.3 FL (6.5-11.5); MONOCYTE# 0.3 X10e3 (0-1.0); MONOCYTE% 5.3 % (3.0-12.0); NEUTROPHIL% 70.1 % (40-75); PLATELET COUNT 233 X10e3 (140-420); RED BLOOD COUNT 4.67 X10e (3.90-5.30); RED CELL DISTRIBUTION WIDTH 16.6 % (11.0-15.5); WHITE BLOOD COUNT 5.7 X10e3 (4.0-10.5)
[2016-11-23 12:16] LABS: DIFF IND NO
[2016-11-23 12:26] LABS: POC - CKMB <1.0 ng/mL (0.0-7.9); POC - TROPONIN <0.05 ng/mL (<=0.05)
[2016-11-23 12:28] LABS: PARTIAL THROMBOPLASTIN TIME 24.1 SECONDS (23.5-31.3); PROTHROMBIN TIME (PATIENT) 10.7 SECONDS (10.0-11.7)
[2016-11-23 12:40] LABS: ALBUMIN SERUM 4.1 g/dL (3.5-5.0); BILIRUBIN, DIRECT 0.1 mg/dL (0.0-0.2); BILIRUBIN,INDIRECT 0.1 mg/dL (0.0-0.9); BILIRUBIN,TOTAL 0.2 mg/dL (0.2-2.0); BUN/CREATININE RATIO 8.88; CALCIUM SERUM 9.2 mg/dL (8.4-10.2); CREATININE SERUM 0.9 mg/dL (0.6-1.4); GLOM FILT RATE Estimated 75.1 mL/min (>60); POTASSIUM 3.7 mmol/L (3.5-5.1); PROTEIN TOTAL SERUM 7.3 g/dL (6.0-8.3)
== END 2016-11-23 13:29 | disposition home or self-care (01) ==
LOC: CED 10:43 → CFTX 12:01 → CED 12:01
PROVIDERS: Emergency Medicine
DX: R06.02 Shortness of breath (principal); R05 Cough; F17.200 Nicotine dependence, unspecified, uncomplicated; Z88.0 Allergy status to penicillin; Z88.5 Allergy status to narcotic agent; Z88.8 Allergy status to other drugs, medicaments and biological substances; Z79.82 Long term (current) use of aspirin; Z79.899 Other long term (current) drug therapy
CPT/HCPCS: 36415; 71010; 74176; 80048; 80076; 82553; 83605; 83690; 84484; 85025; 85610; 85730; 87040; 93005; 94640; 96374; 99285; J2930